=== PATIENT | male | born 1975 | race Caucasian/White ===

== ENCOUNTER 2023-07-22 14:31 | Emergency (ER) | payer OTHER, SELFPAY ==
[2023-07-22 14:40] VITALS: BP 143/92; PULSE 88; RESP 16; TEMP 37.1; O2SAT 96; BMI 31.6
--- NOTE | 2023-07-22 15:03 | ED_ITS ---
HPI - Eye Problem General Time Seen by Provider: 15:03 Date Seen: 07/22/23 Chief complaint: Eye Problems Stated complaint: wood sliver in eye Time Seen by Provider: 07/22/23 14:35 Source: patient and RN notes reviewed Mode of arrival: ambulatory Limitations: no limitations History of Present Illness HPI Narrative: This 47-year-old male is coming into the ER with concern of irritation in his right eye. He is helping his nephew move into a house, they were moving a microwave and installing. They had to cut some of the back splashed. He feels he may have gotten a wood splinter in his eye in this process. He just feels irritation right in the center of his cornea. He does not have any watering of his eye, does not have any visual disturbance. He is sure his tetanus is up-to-date within the last couple of years. chief complaint: eye pain Related Data Patient tetanus UTD: Yes Previous Rx's Medication Instructions Recorded gentamicin 0.3 % eye drops 2 drp ophthalmic (eye-right) QID 3 07/22/23 days #5 mL Allergies Allergy/AdvReac Type Severity Reaction Status Date / Time Iodinated Contrast Media Allergy Mild rash Verified 07/22/23 14:47 Review of Systems Narrative: As per HPI. Exam Const: Vital Signs, click to edit/add: Vital Signs - 24 hr 07/22/23 14:40 Temperature 98.8 F Pulse Rate [Right Pulse Oximeter] 88 Respiratory Rate 16 Blood Pressure [Ri ght Upper Arm] 143/92 H Pulse Oximetry 96 Oxygen Delivery Me thod Room Air This 47-year-old male is alert, interactive, no apparent distress. He is wearing glasses. I can visibly see a small foreign body right in the center of his right cornea, see it almost immediately upon walking up to him. There is no periorbital swelling or erythema on either side. There is no conjunctivae changes on either side. His eyes are not watering. Two drops of tetracaine were placed in the right eye. He no longer felt any irritation. I was able to simply take a cotton tip applicator and easily remove this very small foreign body. Almost appears like it was maybe perhaps part of the back splash. On re- evaluation of his eye, can see no defect, no residual foreign body. Magnification was used. Documenting provider has reviewed patient's vital signs: yes Course Vital Signs Vital signs: Initial Vital Signs Temperature 98.8 F 07/22/23 14:40 Temperature Source Temporal Artery Scan 07/22/23 14:40 Pulse Rate 88 07/22/23 14:40 Respiratory Rate 16 07/22/23 14:40 Blood Pressure 143/92 H 07/22/23 14:40 Blood Pressure Mean 109 H 07/22/23 14:40 Blood Pressure Position Sitting 07/22/23 14:40 Pulse Oximetry 96 07/22/23 14:40 Oxygen Delivery Method Room Air 07/22/23 14:40 Vital Signs Temperature 98.8 F 07/22/23 14:40 Pulse Rate 88 07/22/23 14:40 Respiratory Rate 16 07/22/23 14:40 Blood Pressure 143/92 H 07/22/23 14:40 Pulse Oximetry 96 07/22/23 14:40 Oxygen Delivery Method Room Air 07/22/23 14:40 Temperature 98.8 F 07/22/23 14:40 Pulse Rate 88 07/22/23 14:40 Respiratory Rate 16 07/22/23 14:40 Blood Pressure 143/92 H 07/22/23 14:40 Pulse Oximetry 96 07/22/23 14:40 Oxygen Delivery Method Room Air 07/22/23 14:40 Discharge Plan Discharge Clinical Impression: Acute foreign body of cornea Qualifiers: Encounter type: initial encounter Laterality: right Qualified Code(s): T15.01XA - Foreign body in cornea, right eye, initial encounter Patient Disposition: Home, Self-Care Condition: Stable Instructions: Eye Foreign Body (ED) Additional Instructions: Can use [id number] medications such as Tylenol or ibuprofen per bottle directions if needed for any residual discomfort. Have written for gentamicin antibiotic eyedrops to be used the next 3 days, follow-up prescription. If you have any sense of ongoing discomfort beyond Monday or if you notice any visual changes when looking through the cornea, do need to follow up with Optometry on Monday or Monday of next week. Activity Level: Activity as Tolerated Prescriptions: New gentamicin 0.3 % drops 2 drp ophthalmic (eye-right) QID 3 Days Qty: 5 0RF Stand Alone Forms: MyHealth Info Instructions
== END 2023-07-22 15:44 | disposition home or self-care (01) ==
PROVIDERS: Emergency Provider Family Medicine
DX: T15.01XA Foreign body in cornea, right eye, initial encounter (principal)
CPT/HCPCS: 10120; 99282; 99283